=== PATIENT | female | born 1980 | race Asian ===

== ENCOUNTER 2019-07-31 17:07 | Emergency (ER) | payer OTHER, SELFPAY ==
[2019-07-31 17:12] VITALS: BP 140/97; PULSE 94; RESP 16; TEMP 36.6; O2SAT 97; BMI 29.7
--- NOTE | 2019-07-31 18:13 | ED_ITS ---
HPI - Abdominal Pain General Chief Complaint: Abdominal Pain Stated Complaint: FEMALE PARTS ARE AT WAR WITHIN HER Time Seen by Provider: 07/31/19 17:57 Source: patient Mode of arrival: ambulatory Limitations: no limitations History of Present Illness HPI narrative: Patient is a 38 year old female who presents with lower abdominal pain on going for 1 week, worse today. She has cramping and nausea, she was vomiting last week some but that has stopped. Normal bowel movements. She denies and vaginal pain or discharge, she is having some spotting. She has some burning sensation with urintation. He actually has been having pain off and on since June 21. She was seen by consumer services advisor who took out her brain as she had a pelvic ultrasound 2 weeks ago which she said was normal. She has a remote history of endometriosis. She has not had any fever chills or sweats. Related Data Home Medications Medication Instructions Recorded Confirmed thyroid (pork) [Nature-Throid] 48.75 mg PO QAM #0 05/27/17 levonorgestrel [Mirena] 52 mg INTRAU #0 01/11/18 DIM PO 07/30/19 dihydroergotamine NASAL PRN 07/30/19 07/30/19 ibuprofen 800 mg tablet 800 mg PO Q6H PRN 07/30/19 07/30/19 sumatriptan succinate 50 mg tablet 50 mg PO Q2-4H PRN 07/30/19 07/30/19 Previous Rx's Medication Instructions Recorded hydrocodone-acetaminophen 1 - 2 tab PO Q4HP PRN #40 tab 12/26/17 ondansetron 4 mg disintegrating 4 mg PO TID PRN 4 Days #20 tab 07/30/19 tablet rizatriptan 10 mg disintegrating See Rx Instructions PO .COMPLEX 07/30/19 tablet #10 tab verapamil 120 mg tablet,extended 120 mg PO DAILY #30 tab 07/30/19 release verapamil 40 mg tablet 40 mg PO TID #30 tab 07/30/19 hydrocodone-acetaminophen [[place]] 1 tab PO Q4-6H PRN #10 tab 07/31/19 Allergies Allergy/AdvReac Type Severity Reaction Status Date / Time Pertussis Vaccines Allergy Unknown Verified 07/30/19 14:47 [PERTUSSIS VACCINES] phenytoin [From DILANTIN] Allergy Unknown Verified 07/30/19 14:47 acetaminophen [From Percocet] Allergy rash, Verified 07/30/19 14:47 itching divalproex sodium Allergy fever, rash Verified 07/30/19 14:47 [From Depakote] omeprazole [From Prilosec] Allergy fever, rash Verified 07/30/19 14:47 oxycodone [From Percocet] Allergy rash, Verified 07/30/19 14:47 itching PAPER TAPE Allergy Unknown Uncoded 07/30/19 14:47 Review of Systems Review of Systems ROS Unobtainable: All systems reviewed & are unremarkable except as noted in HPI and below Constitutional Constitutional: Denies chills, Denies fever(s), Denies lethargy and Denies weakness ENT Ears, Nose, Mouth, and Throat: Denies change in voice, Denies neck pain and Denies sore throat Cardiovascular Cardiovascular: Denies chest pain, Denies irregular heart rhythm, Denies lightheadedness, Denies palpitations, Denies dyspnea, Denies dyspnea on exertion and Denies orthopnea Respiratory Respiratory: Denies cough, Denies dyspnea, Denies dyspnea on exertion and Denies wheezing Gastrointestinal Gastrointestinal: Reports as per HPI, Reports abdominal pain, Denies change in bowel habits, Denies diarrhea, Reports nausea and Denies vomiting Genitourinary Genitourinary: Denies hematuria, Denies flank pain, Denies urinary incontinence and Denies urinary urgency Musculoskeletal Musculoskeletal: Denies neck pain Neurologic Neurologic: Denies weakness Endocrine Endocrine: Denies palpitations Allergic/Immunologic Allergic/Immunologic: Denies wheezing [facility] Medical History History of stroke without residual deficits (05/27/17) Menorrhagia with regular cycle (Acute) Pelvic peritoneal endometriosis (Acute) Surgical History Status post laparoscopy (12/30/17) Social History Smoking Status: Never smoker Social History Smoking Status: Never smoker Exam Initial Vital Signs Initial Vital Signs: Vital Signs Temperature 97.8 F 07/31/19 17:12 Pulse Rate 94 H 07/31/19 17:12 Respiratory Rate 16 07/31/19 17:12 Blood Pressure 140/97 H 07/31/19 17:12 Pulse Oximetry 97 07/31/19 17:12 GENERAL: Patient appears in pain HEENT: Head atraumatic,EOMI, pupils reactive, face symmetric CARDIOVASCULAR: Regular rate and rhythm without murmurs, rubs or gallops. RESPIRATORY: Breath sounds equal bilaterally, no wheezes rales or rhonchi. ABDOMEN: Soft, nontender. Normoactive bowel sounds all 4 quadrants. No guarding or rebound. : No CVA tenderness EXTREMITIES: Normal range of motion, no clubbing or edema. Neurovascularly intact NEUROLOGICAL: Alert and oriented x4.Normal gait and speech. SKIN: Warm, dry, no laceration, no petechiae, no rashes or lesions. Course Orders Ordered: ED Orders 07/31/19 18:10 Test Urine Stat Urine Microscopic Stat 07/31/19 18:20 Complete Blood Count AUTO DIFF Stat Comprehensive Metabolic Panel Stat Lipase Stat Partial Thromboplastin Time Stat Prothrombin Time INR Stat 07/31/19 18:22 CT abdomen pelvis w con Stat Discontinued Medications Hydromorphone HCl (Dilaudid) 0.5 mg IV NOW ONE Stop: 07/31/19 18:23 Last Admin: 07/31/19 18:31 Dose: 0.5 mg Documented by: CSA Sodium Chloride (Normal Saline 0.9%) 1,000 mls @ 1,000 mls/hr IV BOLUS ONE Stop: 07/31/19 19:21 Last Infusion: 07/31/19 19:34 Dose: 0 mls/hr Documented by: Admin: 07/31/19 18:31 Dose: 1,000 mls/hr Documented by: CAS Ketorolac Tromethamine (Toradol) 30 mg IV NOW ONE Stop: 07/31/19 19:53 Last Admin: 07/31/19 19:56 Dose: 30 mg Documented by: CAS Ondansetron HCl (Zofran) 4 mg IV NOW ONE Stop: 07/31/19 18:23 Last Admin: 07/31/19 18:31 Dose: 4 mg Documented by: CAS Vital Signs Vital signs: Vital Signs - 8 hr 07/31/19 17:12 07/31/19 20:19 Temperature 97.8 F Pulse Rate 94 H 59 L Respiratory Rate 16 14 Blood Pressure 140/97 H 114/70 Pulse Oximetry 97 99 MDM - Abdominal Pain Lab Data Attestation: I reviewed the patient's lab results. Result diagrams: 07/31/19 18:20 07/31/19 18:20 Labs: Lab Results 07/31/19 07/31/19 07/31/19 Range/Units 18:10 18:10 18:20 WBC 8.8 (4.5-11.0) X10^3/uL RBC 4.56 (4.0-5.2) X10^6/uL Hgb 13.9 (12.0-16.0) g/dL Hct 41.4 (36-46) % MCV 90.9 (80-100) fL MCH 30.5 (26-34) PG MCHC 33.5 (30-36) % RDW 12.8 (11.6-14.8) % Plt Count 250 (150-400) X10^3/uL Neut % (Auto) 69.9 (50-75) % Lymph % (Auto) 21.6 L (25-40) % [place] % (Auto) 6.8 (3-14) % Eos % (Auto) 1.0 L (2-4) % Baso % (Auto) 0.7 (0-2) % Neut # (Auto) 6200 (0772-5796) /uL Lymph # (Auto) 1900 (9074-3763) /uL [place] # (Auto) 600 (0-900) /uL Eos # (Auto) 100 (0-450) /uL Baso # (Auto) 100 (0-100) /uL PT (10.1-12.7) SECONDS INR (0.9-1.3) APTT (26.4-36.2) SECONDS Sodium (137-145) mmol/L Potassium (3.4-5.1) mmol/L Chloride (98-107) mmol/L Carbon Dioxide (22-32) mmol/L BUN (7-17) mg/dL Creatinine (0.52-1.04) mg/dL Estimated GFR (>60) mL/min BUN/Creatinine Ratio (6-22) Glucose (70-100) mg/dL Calcium (8.4-10.2) mg/dL Total Bilirubin (0.2-1.3) mg/dL AST (14-36) IU/L ALT (9-52) IU/L Alkaline Phosphatase (38-126) U/L Total Protein (6.3-8.2) g/dL Albumin (3.5-5.0) g/dL Globulin (1.7-4.1) g/dL Albumin/Globulin Ratio (1.0-2.8) Lipase (23-300) U/L Urine RBC None seen (0-5/HPF) Urine WBC None seen (0-5/HPF) Urine Bacteria None seen (None) Ur Culture Indicated? Cult not indicated Micro UA Comment Microscopic normal Urine Test Negative (Negative) 07/31/19 07/31/19 Range/Units 18:20 18:20 WBC (4.5-11.0) X10^3/uL RBC (4.0-5.2) X10^6/uL Hgb (12.0-16.0) g/dL Hct (36-46) % MCV (80-100) fL MCH (26-34) PG MCHC (30-36) % RDW (11.6-14.8) % Plt Count (150-400) X10^3/uL Neut % (Auto) (50-75) % Lymph % (Auto) (25-40) % [place] % (Auto) (3-14) % Eos % (Auto) (2-4) % Baso % (Auto) (0-2) % Neut # (Auto) (3030-5048) /uL Lymph # (Auto) (7114-1141) /uL [place] # (Auto) (0-900) /uL Eos # (Auto) (0-450) /uL Baso # (Auto) (0-100) /uL PT 11.3 (10.1-12.7) SECONDS INR 1.0 (0.9-1.3) APTT 32 (26.4-36.2) SECONDS Sodium 139 (137-145) mmol/L Potassium 3.8 (3.4-5.1) mmol/L Chloride 103 (98-107) mmol/L Carbon Dioxide 26 (22-32) mmol/L BUN 7 (7-17) mg/dL Creatinine 0.80 (0.52-1.04) mg/dL Estimated GFR > 60.0 (>60) mL/min BUN/Creatinine Ratio 8.8 (6-22) Glucose 94 (70-100) mg/dL Calcium 9.7 (8.4-10.2) mg/dL Total Bilirubin 0.6 (0.2-1.3) mg/dL AST 22 (14-36) IU/L ALT 13 (9-52) IU/L Alkaline Phosphatase 43 (38-126) U/L Total Protein 7.6 (6.3-8.2) g/dL Albumin 4.4 (3.5-5.0) g/dL Globulin 3.2 (1.7-4.1) g/dL Albumin/Globulin Ratio 1.4 (1.0-2.8) Lipase 116 (23-300) U/L Urine RBC (0-5/HPF) Urine WBC (0-5/HPF) Urine Bacteria (None) Ur Culture Indicated? Micro UA Comment Urine Test (Negative) Point of care testing: Urine Dip Bedside Urine Glucose Negative Bedside Urine Bilirubin - Negative Bedside Urine Ketone - Negative Urine Specific [place] 1.000 Bedside Urine Occult Blood + Bedside Urine pH 7.0 Bedside Urine Protein - Negative Bedside Urine Urobilinogen - Negative Bedside Urine Nitrite - Negative Bedside Urine Leukocytes - Negative Esterase Imaging Data CT scan - abdomen: Radiologist's impression: PROCEDURE: CT ABDOMEN PELVIS W CON INDICATIONS: lower ab pain TECHNIQUE: After the administration of intravenous contrast, 5 mm thick sections acquired from the diaphragm to the symphysis. 5 mm coronal and sagittal reformats were acquired. For radiation dose reduction, the following was used: automated exposure control, adjustment of mA and/or kV according to patient size. COMPARISON: [facility], CT, ABDOMEN/PELVIS WITH CONTRAST, 08/19/2016, 8:11. FINDINGS: Image quality: Excellent. ABDOMEN: Lung bases: Lung bases are clear. Heart size is normal. Solid organs: Liver is normal in size and enhancement. Gallbladder is within normal limits. Biliary system is non dilated. Pancreas enhances normally. Spleen is normal in size and enhancement. No adrenal nodules. Kidneys demonstrate normal size and enhancement, without hydronephrosis. Peritoneum and bowel: Bowel loops demonstrate normal wall thickness and caliber. No pneumoperitoneum. Trace free fluid within the pelvis. Normal appendix. Nodes and vessels: No retroperitoneal or mesenteric adenopathy by size criteria. Aorta and inferior vena cava are normal in size. Miscellaneous: No ventral hernias. PELVIS: Genitourinary: Bladder wall thickness is normal. Miscellaneous: No inguinal hernias or adenopathy. Bones: No suspicious bony lesions. No vertebral body compression fractures. IMPRESSION: 1. No acute process. 2. Normal appendix. 3. Trace free fluid within the pelvis, within physiological limits in a menstruating female. Dictated by: Sophia Perez M.D. on 07/31/2019 at 19:24 MDM Narrative Medical decision making narrative: Patient absolutely denies any abnormal vaginal discharge or vaginal pain. She is offered a pelvic ultrasound however she says she generally does had 1 1 or 2 weeks ago and it did not show anything. She is refusing repeat. She does have signs or symptoms to suggest pelvic infection. She has a consumer services advisor. Blood work and CT overall reassuring. Pain is better after Dilaudid however starting to back. No sign of UTI or infection Discharge Plan Departure Patient Disposition: Home Clinical Impression: Endometriosis Discharge Date/Time: 07/31/19 20:19 Instructions: DI for Endometriosis Activity Restrictions/Additional Instructions: *You have been diagnosed with endometriosis *What to do: CT blood work today are reassuring. Pain is likely from her endometriosis. You may require further testing or treatment please see a consumer services advisor about this. *Continue to take medications as directed Hydrocodone 1 tablet every 4 hours if needed for pain or 2 tablets every 6 hours *Follow up with your primary care provider in 2-3 days *Return to ER if you should have significant increase in pain, vaginal bleeding more than 3 super pads or tampons an hour, fevers inability tolerate fluids or any new, worsening or concerning symptoms CONTROLLED SUBSTANCE DISCHARGE (Narcotoic/benzodiazepine/Flexeril/Phenergan) 1. You have been prescribed narcotic medications, it does have acetaminophen/Tylenol/paracetamol in it so do not take extra Tylenol or Tylenol containing products 2. Please understand that we cannot provide further refills of narcotics, benzodiazepines or controlled substances through the ED and her pain management will need to be through your provider. 3. While on these medications you cannot drive or operate heavy machinery. 4. You cannot sign legal documents or perform any duties such as this. 5. As long as you're taking opiate pain medications he should also be taking a stool softener such as Colace, Dulcolax, MiraLAX or prune juice, to help avoid constipation. Prescriptions: New hydrocodone-acetaminophen [[place]] 5-325 mg tablet 1 tab PO Q4-6H PRN (Reason: pain) Qty: 10 RF: 0 No Action thyroid (pork) [Nature-Throid] 48.75 MG tablet 48.75 mg PO QAM Qty: 0 RF: 0 hydrocodone-acetaminophen 5 MG/325 MG tablet 1 - 2 tab PO Q4HP PRNQty: 40 RF: 0 levonorgestrel [Mirena] 1 EACH intrauterine device 52 mg INTRAU Qty: 0 RF: 0 sumatriptan succinate 50 mg tablet 50 mg PO Q2-4H PRNRF: 0 ibuprofen 800 mg tablet 800 mg PO Q6H PRNRF: 0 dihydroergotamine NASAL PRNRF: 0 DIM PO RF: 0 ondansetron 4 mg tablet,disintegrating 4 mg PO TID PRN (Reason: nausea and vomiting) 4 Days Qty: 20 RF: 2 rizatriptan 10 mg tablet,disintegrating See Rx Instructions PO .COMPLEX Qty: 10 RF: 3 verapamil 40 mg tablet 40 mg PO TID Qty: 30 RF: 0 verapamil 120 mg tablet extended release 120 mg PO DAILY Qty: 30 RF: 5 Referrals: Kate Chou MD [Primary Care Provider] - Mahnaz Vasquez MD [Physician] - Umesh Bright MD [Physician] -
[2019-07-31 18:21] LABS: Bacteria Urine None Seen; RBC Urine None Seen (0-5/HPF); WBC Urine None Seen (0-5/HPF)
--- NOTE | 2019-07-31 18:22 | DI.CT.S_ITS ---
PROCEDURE: CT ABDOMEN PELVIS W CON INDICATIONS: lower ab pain TECHNIQUE: After the administration of intravenous contrast, 5 mm thick sections acquired from the diaphragm to the symphysis. 5 mm coronal and sagittal reformats were acquired. For radiation dose reduction, the following was used: automated exposure control, adjustment of mA and/or kV according to patient size. COMPARISON: [facility], CT, ABDOMEN/PELVIS WITH CONTRAST, 08/19/2016, 8:11. FINDINGS: Image quality: Excellent. ABDOMEN: Lung bases: Lung bases are clear. Heart size is normal. Solid organs: Liver is normal in size and enhancement. Gallbladder is within normal limits. Biliary system is non dilated. Pancreas enhances normally. Spleen is normal in size and enhancement. No adrenal nodules. Kidneys demonstrate normal size and enhancement, without hydronephrosis. Peritoneum and bowel: Bowel loops demonstrate normal wall thickness and caliber. No pneumoperitoneum. Trace free fluid within the pelvis. Normal appendix. Nodes and vessels: No retroperitoneal or mesenteric adenopathy by size criteria. Aorta and inferior vena cava are normal in size. Miscellaneous: No ventral hernias. PELVIS: Genitourinary: Bladder wall thickness is normal. Miscellaneous: No inguinal hernias or adenopathy. Bones: No suspicious bony lesions. No vertebral body compression fractures. IMPRESSION: 1. No acute process. 2. Normal appendix. 3. Trace free fluid within the pelvis, within physiological limits in a menstruating female. Dictated by: Sophia Perez M.D. on 07/31/2019 at 19:24 Approved by: Sophia Perez M.D. on 07/31/2019 at 19:26
[2019-07-31 18:26] LABS: Add Manual Diff / Slide Review NO; Basophils Absolute Auto 100 /uL (0-100); Basophils Percent Auto 0.7 % (0-2); Eosinophils Absolute Auto 100 /uL (0-450); Hematocrit 41.4 % (36-46); Hemoglobin 13.9 g/dL (12.0-16.0); Lymphocytes Absolute Auto 1900 /uL (1100-4500); Lymphocytes Percent Auto 21.6 % (25-40); Mean Corpuscular HGB Conc 33.5 % (30-36); Mean Corpuscular Hemoglobin 30.5 PG (26-34); Mean Corpuscular Volume 90.9 fL (80-100); Monocytes Absolute Auto 600 /uL (0-900); Monocytes Percent Auto 6.8 % (3-14); Neutrophils Absolute Auto 6200 /uL (1500-7000); Neutrophils Percent Auto 69.9 % (50-75); Platelet Count 250 X10^3/uL (150-400); Red Blood Cell Count 4.56 X10^6/uL (4.0-5.2); Red Cell Distribution Width 12.8 % (11.6-14.8); White Blood Cell Count 8.8 X10^3/uL (4.5-11.0)
[2019-07-31] MEDS: ONDANSETRON 4 MG/2 ML INJ IV (18:31)
[2019-07-31] MEDS: HYDROMORPHONE 0.5 MG INJ IV (18:31)
[2019-07-31] MEDS: SODIUM CHLORIDE 0.9% 1,000 ML 1000 ML IV (18:31)
[2019-07-31 18:32] LABS: Prothrombin Time 11.3 SECONDS (10.1-12.7)
[2019-07-31 18:34] LABS: PTT Partial Thromboplastin Tim 32 SECONDS (26.4-36.2)
[2019-07-31 18:41] LABS: Alanine Aminotransferase 13 IU/L (9-52); Albumin 4.4 g/dL (3.5-5.0); Albumin Globulin Ratio 1.4 (1.0-2.8); Alkaline Phosphatase 43 U/L (38-126); Aspartate Aminotransferase 22 IU/L (14-36); BUN Creatinine Ratio 8.8 (6-22); Bilirubin Total 0.6 mg/dL (0.2-1.3); Blood Urea Nitrogen 7 mg/dL (7-17); Calcium 9.7 mg/dL (8.4-10.2); Carbon Dioxide 26 mmol/L (22-32); Chloride 103 mmol/L (98-107); Estimated Glomerular Filt Rate > 60.0 mL/min (>60); Globulin 3.2 g/dL (1.7-4.1); Glucose 94 mg/dL (70-100); HEMOLYSIS < 15 (0-50); Lipase 116 U/L (23-300); Potassium 3.8 mmol/L (3.4-5.1); Sodium 139 mmol/L (137-145); Total Protein 7.6 g/dL (6.3-8.2)
[2019-07-31 18:45] LABS: Culture Indicated Urine Cult Not Indicated; Urine Comments Microscopic Normal
[2019-07-31 18:52] LABS: Pregnancy Test Urine Negative (Negative)
[2019-07-31] MEDS: KETOROLAC 60 MG/2 ML VIAL 30 MG IV (19:56)
[2019-07-31 20:19] VITALS: BP 114/70; PULSE 59; RESP 14; O2SAT 99
== END 2019-07-31 20:19 | disposition home or self-care (01) ==
PROVIDERS: Emergency Medicine; Emergency Provider Emergency Medicine; Family Provider Specialist; PCP Specialist
DX: N80.9 Endometriosis, unspecified (principal)
CPT/HCPCS: 36591; 74177; 80053; 81003; 81015; 81025; 83690; 85025; 85610; 85730; 96361; 96374; 96375; 99283; 99285; J1170; J1885; J2405; Q9967

== ENCOUNTER 2020-01-07 12:58 | Emergency (ER) | payer OTHER, SELFPAY ==
[2020-01-07 13:02] VITALS: BP 126/71; PULSE 57; RESP 18; TEMP 36.6; O2SAT 99
--- NOTE | 2020-01-07 14:56 | ED.FEMALEGU ---
HPI - Female Genitourinary General Chief complaint: Urogenital-Female Stated complaint: Poss Kidney Stone, sent from [facility] Time Seen by Provider: 01/07/20 14:46 Source: patient Mode of arrival: Wheelchair Limitations: no limitations History of Present Illness HPI Narrative: 39-year-old female comes in with left flank pain. Patient states it started the last 24-48 hours. Started as a dull ache in increased intensity into today. It has been constant. She states taking a deep breath makes it worse. No fevers. She has been nauseated but not vomiting. She was constipated she took some milk of magnesium and had a normal bowel movement this morning. No black or bloody stools. No vaginal bleeding or discharge. Patient states she had frequency yesterday but less so today. No hematuria noted, no odor, no urgency or dysuria. She states she has a history of endometriosis had a hysterectomy and was told that there was a lot of endometrial changes around the ureters and that the surgeon ?did something to her ureters? but she does not know what. She states that also removed her appendix at that time. She did not follow-up with a dimension specification inspector although she was instructed to do so. . She states multiple allergies to medications. She was seen in the walk-in clinic given Zofran and Toradol IM which she said was helpful but is wearing off. Related Data Home Medications Medication Instructions Recorded Confirmed thyroid (pork) [Nature-Throid] 48.75 mg PO QAM #0 05/27/17 01/07/20 DIM PO 07/30/19 01/07/20 dihydroergotamine NASAL PRN 07/30/19 01/07/20 ibuprofen 800 mg tablet 800 mg PO Q6H PRN 07/30/19 01/07/20 sumatriptan succinate 50 mg tablet 50 mg PO Q2-4H PRN 07/30/19 01/07/20 Previous Rx's Medication Instructions Recorded ondansetron 4 mg disintegrating 4 mg PO TID PRN 4 Days #20 tab 07/30/19 tablet rizatriptan 10 mg disintegrating See Rx Instructions PO .COMPLEX 07/30/19 tablet #10 tab verapamil 120 mg tablet,extended 120 mg PO DAILY #30 tab 07/30/19 release verapamil 40 mg tablet 40 mg PO TID #30 tab 09/16/19 naproxen sodium 550 mg tablet 550 mg PO TID #60 tab 08/06/19 ketorolac 10 mg PO TID PRN 5 Days #10 tab 01/07/20 lidocaine 1 patch TOP DAILY PRN #1 each 01/07/20 Allergies Allergy/AdvReac Type Severity Reaction Status Date / Time Pertussis Vaccines Allergy Unknown Verified 01/07/20 12:32 [PERTUSSIS VACCINES] phenytoin [From DILANTIN] Allergy Unknown Verified 01/07/20 12:32 acetaminophen [From Percocet] Allergy rash, Verified 01/07/20 12:32 itching divalproex sodium Allergy fever, rash Verified 01/07/20 12:32 [From Depakote] omeprazole [From Prilosec] Allergy fever, rash Verified 01/07/20 12:32 oxycodone [From Percocet] Allergy rash, Verified 01/07/20 12:32 itching PAPER TAPE Allergy Unknown Uncoded 07/30/19 14:47 Review of Systems Review of Systems ROS Unobtainable: All systems reviewed & are unremarkable except as noted in HPI and below Patient History Medical History History of stroke without residual deficits (05/27/17) Menorrhagia with regular cycle (Acute) Pelvic peritoneal endometriosis (Acute) Surgical History Status post laparoscopy (12/30/17) alcohol intake frequency: holidays/special occasions only Substance Use Type: does not use Exam Narrative Exam Narrative: GENERAL: Alert and oriented x three, well-nourished female in [id number] distress. HEENT: Head normocephalic, atraumatic, EOMI, pupils reactive, face symmetric, moist mucous membranes NECK: Supple, full range of motion CARDIOVASCULAR: Regular rate and rhythm without murmurs, rubs or gallops. RESPIRATORY: Breath sounds equal bilaterally, no wheezes rales or rhonchi. ABDOMEN: Soft, nontender. Normoactive bowel sounds all 4 quadrants. No guarding or rebound, rigidity, no mass : Mild left CVA tenderness, no right CVA tenderness. EXTREMITIES: Normal range of motion, no clubbing or edema. Neurovascularly intact NEUROLOGICAL: Cranial nerves II through XII grossly intact. Moving all extremities SKIN: Warm, dry, no petechiae, no rashes or lesions. Initial Vital Signs Initial Vital Signs: Vital Signs Temperature 97.8 F 01/07/20 13:02 Pulse Rate 57 L 01/07/20 13:02 Respiratory Rate 18 01/07/20 13:02 Blood Pressure 126/71 01/07/20 13:02 Pulse Oximetry 99 01/07/20 13:02 Course Orders Ordered: ED Orders 01/07/20 15:07 CT abdomen pelvis wo con Stat 01/07/20 15:11 Complete Blood Count AUTO DIFF Stat Comprehensive Metabolic Panel Stat Lipase Stat Discontinued Medications Sodium Chloride (Normal Saline 0.9%) 1,000 mls @ 1,000 mls/hr IV BOLUS ONE Stop: 01/07/20 16:06 Last Infusion: 01/07/20 16:17 Dose: 1,000 mls/hr Documented by: Admin: 01/07/20 15:53 Dose: 1,000 mls/hr Documented by: CPRUITT Morphine Sulfate (Morphine) 4 mg IV NOW ONE Stop: 01/07/20 15:08 Last Admin: 01/07/20 15:34 Dose: 4 mg Documented by: CPRUITT Vital Signs Vital signs: Vital Signs - 8 hr 01/07/20 13:02 01/07/20 15:40 01/07/20 16:18 Temperature 97.8 F Pulse Rate 57 L 59 L 62 Respiratory Rate 18 18 14 Blood Pressure 126/71 Blood Pressure [Right Arm] 128/71 124/70 Pulse Oximetry 99 100 99 MDM - Female Genitourinary Lab Data Attestation: I reviewed the patient's lab results. Result diagrams: 01/07/20 15:11 01/07/20 15:11 Labs: Lab Results 01/07/20 01/07/20 Range/Units 15:11 15:11 WBC 11.2 H (4.5-11.0) X10^3/uL RBC 4.61 (4.0-5.2) X10^6/uL Hgb 14.1 (12.0-16.0) g/dL Hct 42.0 (36-46) % MCV 91.0 (80-100) fL MCH 30.5 (26-34) PG MCHC 33.5 (30-36) % RDW 12.7 (11.6-14.8) % Plt Count 282 (150-400) X10^3/uL Neut % (Auto) 75.0 (50-75) % Lymph % (Auto) 17.3 L (25-40) % [place] % (Auto) 6.4 (3-14) % Eos % (Auto) 0.6 L (2-4) % Baso % (Auto) 0.7 (0-2) % Neut # (Auto) 8400 H (6798-6900) /uL Lymph # (Auto) 1900 (7446-0045) /uL [place] # (Auto) 700 (0-900) /uL Eos # (Auto) 100 (0-450) /uL Baso # (Auto) 100 (0-100) /uL Sodium 137 (137-145) mmol/L Potassium 4.0 (3.4-5.1) mmol/L Chloride 102 (98-107) mmol/L Carbon Dioxide 26 (22-32) mmol/L BUN 9 (7-17) mg/dL Creatinine 0.70 (0.52-1.04) mg/dL Estimated GFR > 60.0 (>60) mL/min BUN/Creatinine Ratio 12.9 (6-22) Glucose 89 (70-100) mg/dL Calcium 9.6 (8.4-10.2) mg/dL Total Bilirubin 0.8 (0.2-1.3) mg/dL AST 26 (14-36) IU/L ALT 15 (<35) IU/L Alkaline Phosphatase 51 (38-126) U/L Total Protein 7.9 (6.3-8.2) g/dL Albumin 4.6 (3.5-5.0) g/dL Globulin 3.3 (1.7-4.1) g/dL Albumin/Globulin Ratio 1.4 (1.0-2.8) Lipase 70 (23-300) U/L Point of Care Testing Test Results Negative Urine Dip Bedside Urine Glucose Negative Bedside Urine Bilirubin - Negative Bedside Urine Ketone - Negative Urine Specific Roe 1.010 Bedside Urine Occult Blood - Negative Bedside Urine pH 6.5 Bedside Urine Protein - Negative Bedside Urine Urobilinogen - Negative Bedside Urine Nitrite - Negative Bedside Urine Leukocytes - Negative Esterase Imaging Data CT scan - abdomen/pelvis: Radiologist's Impression: [address] [address] [address] Scan Report Signed Patient: Dayanna Suarez EMR#: [id number] : 1980Acct:[id number] Age/Sex: 39 / FDate of Service: 01/07/20 Loc: ED Accession Number: [id number] Procedure: CT abdomen pelvis wo con Ordering Provider: Nina Benedict D.O. PROCEDURE: CT ABDOMEN PELVIS WO CON INDICATIONS: left flank pain, hx of endometriosis. TECHNIQUE: Noncontrast 5 mm thick sections acquired from the diaphragms to the symphysis. 5 mm coronal and sagittal reformats were then performed. For radiation dose reduction, the following was used: automated exposure control, adjustment of mA and/or kV according to patient size. COMPARISON: [facility], CT, CT ABDOMEN PELVIS W CON, 07/31/2019, 19:11. FINDINGS: Image quality: Excellent. ABDOMEN: Lung bases: Lung bases are clear. Heart size is normal. Solid organs: Liver is mildly prominent. Gallbladder is unremarkable. Pancreas is normal in contours. Spleen is normal in size. No adrenal nodules. Kidneys are normal in size, without hydronephrosis or nephrolithiasis. Peritoneum and bowel: Unenhanced bowel loops demonstrate normal wall thickness and caliber. No free air. Minimal dependent pelvic fluid is present. Nodes and vessels: No retroperitoneal or mesenteric adenopathy by size criteria. Aorta and inferior vena cava are normal in caliber. Miscellaneous: No ventral hernias. PELVIS: Genitourinary: Bladder wall thickness is normal. Miscellaneous: No inguinal hernias or adenopathy. Bones: No suspicious bony lesions. No vertebral body compression fractures. IMPRESSION: 1. No visualized nephro or ureterolithiasis. No bladder calculi. 2. Minimal dependent pelvic fluid. Dictated by: Seema Marsh M.D. on 01/07/2020 at 15:34 Approved by: Seema Marsh M.D. on 01/07/2020 at 15:37 MDM Narrative Medical decision making narrative: Patient comes in with complaint of left flank pain, urine is negative, she is white count 11.2 but otherwise normal labs. Renal functions normal. KUB does not show any acute findings. We discussed that there is potential for to have recurrent endometriosis although less likely with her acute onset of pain this would not show an imaging. She responded well to the Toradol and asked if she can have something similar so given Toradol p.o. but discussed cannot take it for prolonged periods in cannot take it with other NSAIDs. Discussed she should follow-up with her OBGYN there were no changes showing any renal dysfunction today as she had been told she needs to see a dimension specification inspector although it is unclear why she was told this. We did ask if she had perhaps been referred to a urologist as she has been told she has interstitial cystitis although her labs and exam today seem less likely that this is the cause of her pain. Discharge Plan Departure Patient Disposition: Home Clinical Impression: Flank pain Discharge Date/Time: 01/07/20 16:21 Instructions: DI for Flank Pain Activity Restrictions/Additional Instructions: Follow-up with your physician in the next week for recheck. Your labs, urine imaging did not show any acute changes today. Take medication as prescribed for pain. Do not take this medication with other NSAIDs. Prescriptions sent to [facility] in [place]. Return to the emergency department for new or worsening symptoms, fevers, persistent vomiting, black or bloody stools, passing out, new chest pain or shortness of breath, inability urinate or other new or concerning symptoms. Prescriptions: New ketorolac 10 mg tablet 10 mg PO TID PRN (Reason: pain) 5 Days Qty: 10 RF: 0 lidocaine 5 % adhesive patch,medicated 1 patch TOP DAILY PRN (Reason: pain) Qty: 1 RF: 0 No Action thyroid (pork) [Nature-Throid] 48.75 MG tablet 48.75 mg PO QAM Qty: 0 RF: 0 naproxen sodium 550 mg tablet 550 mg PO TID Qty: 60 RF: 0 sumatriptan succinate 50 mg tablet 50 mg PO Q2-4H PRNRF: 0 ibuprofen 800 mg tablet 800 mg PO Q6H PRNRF: 0 dihydroergotamine NASAL PRNRF: 0 DIM PO RF: 0 ondansetron 4 mg tablet,disintegrating 4 mg PO TID PRN (Reason: nausea and vomiting) 4 Days Qty: 20 RF: 2 rizatriptan 10 mg tablet,disintegrating See Rx Instructions PO .COMPLEX Qty: 10 RF: 3 verapamil 40 mg tablet 40 mg PO TID Qty: 30 RF: 0 verapamil 120 mg tablet extended release 120 mg PO DAILY Qty: 30 RF: 5 Referrals: Kate Chou MD [Primary Care Provider] -
--- NOTE | 2020-01-07 15:07 | DI.CT.S_ITS ---
PROCEDURE: CT ABDOMEN PELVIS WO CON INDICATIONS: left flank pain, hx of endometriosis. TECHNIQUE: Noncontrast 5 mm thick sections acquired from the diaphragms to the symphysis. 5 mm coronal and sagittal reformats were then performed. For radiation dose reduction, the following was used: automated exposure control, adjustment of mA and/or kV according to patient size. COMPARISON: [facility], CT, CT ABDOMEN PELVIS W CON, 07/31/2019, 19:11. FINDINGS: Image quality: Excellent. ABDOMEN: Lung bases: Lung bases are clear. Heart size is normal. Solid organs: Liver is mildly prominent. Gallbladder is unremarkable. Pancreas is normal in contours. Spleen is normal in size. No adrenal nodules. Kidneys are normal in size, without hydronephrosis or nephrolithiasis. Peritoneum and bowel: Unenhanced bowel loops demonstrate normal wall thickness and caliber. No free air. Minimal dependent pelvic fluid is present. Nodes and vessels: No retroperitoneal or mesenteric adenopathy by size criteria. Aorta and inferior vena cava are normal in caliber. Miscellaneous: No ventral hernias. PELVIS: Genitourinary: Bladder wall thickness is normal. Miscellaneous: No inguinal hernias or adenopathy. Bones: No suspicious bony lesions. No vertebral body compression fractures. IMPRESSION: 1. No visualized nephro or ureterolithiasis. No bladder calculi. 2. Minimal dependent pelvic fluid. Dictated by: Seema Marsh M.D. on 01/07/2020 at 15:34 Approved by: Seema Marsh M.D. on 01/07/2020 at 15:37
[2020-01-07 15:22] LABS: Add Manual Diff / Slide Review NO; Basophils Absolute Auto 100 /uL (0-100); Basophils Percent Auto 0.7 % (0-2); Eosinophils Absolute Auto 100 /uL (0-450); Eosinophils Percent Auto 0.6 % (2-4); Hemoglobin 14.1 g/dL (12.0-16.0); Lymphocytes Absolute Auto 1900 /uL (1100-4500); Lymphocytes Percent Auto 17.3 % (25-40); Mean Corpuscular HGB Conc 33.5 % (30-36); Mean Corpuscular Hemoglobin 30.5 PG (26-34); Monocytes Absolute Auto 700 /uL (0-900); Monocytes Percent Auto 6.4 % (3-14); Neutrophils Absolute Auto 8400 /uL (1500-7000); Platelet Count 282 X10^3/uL (150-400); Red Blood Cell Count 4.61 X10^6/uL (4.0-5.2); Red Cell Distribution Width 12.7 % (11.6-14.8); White Blood Cell Count 11.2 X10^3/uL (4.5-11.0)
[2020-01-07] MEDS: MORPHINE 4 MG/ML INJ IV (15:34)
[2020-01-07 15:36] LABS: Alanine Aminotransferase 15 IU/L (<35); Albumin 4.6 g/dL (3.5-5.0); Albumin Globulin Ratio 1.4 (1.0-2.8); Alkaline Phosphatase 51 U/L (38-126); Aspartate Aminotransferase 26 IU/L (14-36); BUN Creatinine Ratio 12.9 (6-22); Bilirubin Total 0.8 mg/dL (0.2-1.3); Blood Urea Nitrogen 9 mg/dL (7-17); Calcium 9.6 mg/dL (8.4-10.2); Carbon Dioxide 26 mmol/L (22-32); Chloride 102 mmol/L (98-107); Estimated Glomerular Filt Rate > 60.0 mL/min (>60); Globulin 3.3 g/dL (1.7-4.1); Glucose 89 mg/dL (70-100); HEMOLYSIS < 15 (0-50); Lipase 70 U/L (23-300); Sodium 137 mmol/L (137-145); Total Protein 7.9 g/dL (6.3-8.2)
[2020-01-07 15:40] VITALS: BP 128/71; PULSE 59; RESP 18; O2SAT 100
[2020-01-07] MEDS: SODIUM CHLORIDE 0.9% 1,000 ML 1000 ML IV (15:53)
[2020-01-07 16:18] VITALS: BP 124/70; PULSE 62; RESP 14; O2SAT 99
== END 2020-01-07 16:21 | disposition home or self-care (01) ==
PROVIDERS: Emergency Provider Emergency Medicine; Family Provider Specialist; PCP Specialist
DX: R10.9 Unspecified abdominal pain (principal)
CPT/HCPCS: 36415; 74176; 80053; 81003; 81025; 83690; 85025; 96374; 99284; J2270

== ENCOUNTER 2020-05-02 14:30 | Emergency (ER) | payer OTHER, SELFPAY ==
--- NOTE | 2020-05-02 14:34 | PC.NURSE ---
1433-no answer, pt not in waiting area
[2020-05-02 14:41] VITALS: BP 132/87; PULSE 97; RESP 18; O2SAT 100; BMI 31.6
--- NOTE | 2020-05-02 14:43 | DI.RAD.S_ITS ---
PROCEDURE: XR CHEST 1V INDICATIONS: chest pain. TECHNIQUE: One view of the chest was acquired. COMPARISON: [facility], , CHEST 1 VIEW, 12/18/2013, 10:15. FINDINGS: Surgical changes and devices: None. Lungs and pleura: Lungs are clear. No pleural effusions or pneumothorax. Mediastinum: Mediastinal contours appear normal. Heart size is normal. Bones and chest wall: No suspicious bony lesions. Overlying soft tissues appear unremarkable. IMPRESSION: Normal for age, source of current chest pain symptoms is not seen. Dictated by: Mt Gerber M.D. on 05/02/2020 at 15:10 Approved by: Mt Gerber M.D. on 05/02/2020 at 15:10
[2020-05-02 15:05] LABS: Add Manual Diff / Slide Review NO; Basophils Absolute Auto 100 /uL (0-100); Basophils Percent Auto 0.9 % (0-2); Eosinophils Absolute Auto 100 /uL (0-450); Eosinophils Percent Auto 1.1 % (2-4); Hematocrit 38.4 % (36-46); Hemoglobin 13.2 g/dL (12.0-16.0); Lymphocytes Absolute Auto 1300 /uL (1100-4500); Lymphocytes Percent Auto 21.6 % (25-40); Mean Corpuscular HGB Conc 34.4 % (30-36); Mean Corpuscular Volume 90.1 fL (80-100); Monocytes Absolute Auto 400 /uL (0-900); Monocytes Percent Auto 6.7 % (3-14); Neutrophils Absolute Auto 4200 /uL (1500-7000); Neutrophils Percent Auto 69.7 % (50-75); Platelet Count 258 X10^3/uL (150-400); Red Blood Cell Count 4.26 X10^6/uL (4.0-5.2); Red Cell Distribution Width 12.9 % (11.6-14.8); White Blood Cell Count 6.1 X10^3/uL (4.5-11.0)
[2020-05-02 15:11] LABS: Prothrombin Time 11.1 SECONDS (10.1-12.7)
[2020-05-02 15:14] LABS: PTT Partial Thromboplastin Tim 31 SECONDS (26.4-36.2)
[2020-05-02 15:18] LABS: Alanine Aminotransferase 14 IU/L (<35); Albumin 4.3 g/dL (3.5-5.0); Albumin Globulin Ratio 1.4 (1.0-2.8); Alkaline Phosphatase 41 U/L (38-126); Aspartate Aminotransferase 26 IU/L (14-36); BUN Creatinine Ratio 14.3 (6-22); Bilirubin Total 0.6 mg/dL (0.2-1.3); Blood Urea Nitrogen 11 mg/dL (7-17); Calcium 9.2 mg/dL (8.4-10.2); Carbon Dioxide 26 mmol/L (22-32); Chloride 106 mmol/L (98-107); Creatine Kinase 61 U/L (30-135); Estimated Glomerular Filt Rate > 60.0 mL/min (>60); Glucose 103 mg/dL (70-100); HEMOLYSIS < 15 (0-50); Lipase 120 U/L (23-300); Potassium 3.5 mmol/L (3.4-5.1); Sodium 138 mmol/L (137-145); Total Protein 7.3 g/dL (6.3-8.2)
[2020-05-02 15:20] LABS: Magnesium 1.9 mg/dL (1.6-2.3)
[2020-05-02 15:40] LABS: Troponin I < 0.012 ng/mL (0.01-0.034)
[2020-05-02 15:51] LABS: TSH w/ Reflex to FT4 1.25 uIU/mL (0.47-4.68)
[2020-05-02 17:06] VITALS: BP 118/57; PULSE 56; RESP 15; O2SAT 100
[2020-05-02 17:40] VITALS: BP 115/70; PULSE 55; O2SAT 100
[2020-05-02 18:02] LABS: Creatine Kinase 61 U/L (30-135)
[2020-05-02 18:03] LABS: D Dimer < 200 ng/mL (<230)
[2020-05-02 18:16] LABS: NT-proBNP (BNP-Adult 18+) 160 pg/mL (<125); Troponin I < 0.012 ng/mL (0.01-0.034)
[2020-05-02 18:34] LABS: Thyroid Stimulating Hormone 1.11 uIU/mL (0.47-4.68)
[2020-05-02 18:39] VITALS: BP 109/72; PULSE 70; RESP 18; O2SAT 100
--- NOTE | 2020-05-02 20:14 | ED_ITS ---
HPI - Chest Pain General Chief Complaint: Chest Pain Stated Complaint: pulse is super high,high blood pressure Time Seen by Provider: 05/02/20 17:05 Source: patient Mode of arrival: Ambulatory History of Present Illness HPI narrative: CC; chest pain with palpitations HPI: The patient is a 39-year-old female comes into the emergency department complaining that she has been having palpitations and racing of her heart for the last 2 weeks prior to admission. At time she has some chest discomfort. She has been trying to make an appointment with her doctor's office but they are afraid to see me in the office without sending me to the emergency department to be evaluated. She denies being dizzy lightheaded or passing out. She has had palpitations with chest discomfort and mild shortness of breath. She feels as though she can not catch her breath. When she was 17 years old after she delivered her 1st child she had a stroke. They told her never to get after that and she has not. Her chest discomfort is a vague chest tightness. She does not smoke cigarettes she does drink alcohol socially but does not use any marijuana. Related Data Home Medications Medication Instructions Recorded Confirmed thyroid (pork) [Nature-Throid] 48.75 mg PO QAM #0 05/27/17 01/07/20 DIM PO 07/30/19 01/07/20 dihydroergotamine NASAL PRN 07/30/19 01/07/20 ibuprofen 800 mg tablet 800 mg PO Q6H PRN 07/30/19 01/07/20 sumatriptan succinate 50 mg tablet 50 mg PO Q2-4H PRN 07/30/19 01/07/20 Previous Rx's Medication Instructions Recorded ondansetron 4 mg disintegrating 4 mg PO TID PRN 4 Days #20 tab 07/30/19 tablet rizatriptan 10 mg disintegrating See Rx Instructions PO .COMPLEX 07/30/19 tablet #10 tab verapamil 120 mg tablet,extended 120 mg PO DAILY #30 tab 07/30/19 release verapamil 40 mg tablet 40 mg PO TID #30 tab 07/30/19 naproxen sodium 550 mg tablet 550 mg PO TID #60 tab 08/06/19 lidocaine 1 patch TOP DAILY PRN #1 each 01/07/20 Allergies Allergy/AdvReac Type Severity Reaction Status Date / Time Pertussis Vaccines Allergy Unknown Verified 05/02/20 14:41 [PERTUSSIS VACCINES] phenytoin [From DILANTIN] Allergy Unknown Verified 05/02/20 14:41 acetaminophen [From Percocet] Allergy rash, Verified 05/02/20 14:41 itching divalproex sodium Allergy fever, rash Verified 05/02/20 14:41 [From Depakote] omeprazole [From Prilosec] Allergy fever, rash Verified 05/02/20 14:41 oxycodone [From Percocet] Allergy rash, Verified 05/02/20 14:41 itching PAPER TAPE Allergy Unknown Uncoded 05/02/20 14:41 Review of Systems Review of Systems Narrative: REVIEW OF SYSTEMS: CONSTITUTIONAL: She denies any fever chills or sweats. NEUROLOGICAL: She has had no significant headache numbness tingling paresthesias anesthesia is paresis or paralysis. EENT: She has had no sore throat or difficulty in swallowing no dysphagia. CARDIO-PULMONARY: She has had a minimal mild cough that has been nonproductive of any sputum associated with a chest discomfort that is an aching discomfort and shortness of breath with palpitations. She has never been told that she had a heart murmur or that she had mitral valve prolapse. GASTROINTESTINAL: She has had no significant abdominal pain nausea vomiting diarrhea melena hematochezia change in bowel habits. GENITAL URINARY: She denies any urinary symptoms. She denies being . MUSCULOSKELETAL/ RHEUMATOLOGICAL: She denies any significant back pain. DERMATOLOGICAL: She has had no rash bruising or bleeding abnormalities. Patient History Medical History History of stroke without residual deficits (05/27/17) Menorrhagia with regular cycle (Acute) Pelvic peritoneal endometriosis (Acute) Surgical History Status post laparoscopy (12/30/17) Social History Smoking Status: Never smoker Smoking Status: Never smoker alcohol intake frequency: holidays/special occasions only Substance Use Type: does not use Exam Narrative Exam Narrative: PHYSICAL EXAM: CONSTITUTIONAL: Awake, Alert, Oriented, Coherent, Cooperative in NAD. Does not appear toxic or ill. HEAD: AT/NC EENT: PERRL, FROM of eyes, no discharge, no nystagmus NOSE:No epistaxis or nasal drainage MOUTH:Oral mucosa is moist and pink, posterior pharynx is without erythema or exudate. NECK: Supple, no obvious JVD, Trachea is midline without stridor, no palpable LN. SPINE: Palpationof the cervical, Thoracic, Lumbar or Sacral spine reveals no gr oss deformity or tenderness. No CVA tenderness. THORAX: No deformity, retractions, chest wall tenderness. LUNGS: Clear, symmetrical breath sounds without respiratory distress. HEART: Normal heart tones, regular rhythm and rate without murmur. ABDOMEN: Soft, non-tender, without guarding, rebound, rigidity or palpable mass. EXTREMITIES: No edema, deformity, tenderness or cyanosis. SKIN: No rash, bruising, petechiae or purpura. NEURO: Awake, alert, oriented, conversive, cranial nerves II-XII are symmetrical , moves all 4 extremities and is ambulatory. MENTAL HEALTH: Does not appear anxious or depressed. Initial Vital Signs Initial Vital Signs: Vital Signs Pulse Rate 97 H 05/02/20 14:41 Respiratory Rate 18 05/02/20 14:41 Blood Pressure 132/87 05/02/20 14:41 Pulse Oximetry 100 05/02/20 14:41 Course Orders Ordered: ED Orders 05/02/20 14:43 XR chest 1V Stat MAG [Magnesium] Stat TSH w/ Reflex to FT4 Stat EKG-12 Lead Stat 05/02/20 14:58 Complete Blood Count AUTO DIFF Stat Comprehensive Metabolic Panel Stat Lipase Stat Partial Thromboplastin Time Stat Prothrombin Time INR Stat Troponin & CK Cardiac Panel Stat 05/02/20 17:30 D Dimer Stat NT-proBNP (BNP-Adult 18+) Stat Thyroid Stimulating Hormone Stat Troponin & CK Cardiac Panel Stat Vital Signs Vital signs: Vital Signs - 8 hr 05/02/20 14:41 05/02/20 17:06 05/02/20 17:40 Pulse Rate 97 H 56 L 55 L Respiratory Rate 18 15 Blood Pressure 132/87 Blood Pressure [Left Arm] 118/57 L 115/70 Pulse Oximetry 100 100 100 05/02/20 18:39 Pulse Rate 70 Respiratory Rate 18 Blood Pressure 109/72 Blood Pressure [Left Arm] Pulse Oximetry 100 MDM - Chest Pain Lab Data Result diagrams: 05/02/20 14:58 05/02/20 14:58 Labs: Lab Results 05/02/20 05/02/20 05/02/20 Range/Units 14:43 14:43 14:58 WBC 6.1 (4.5-11.0) X10^3/uL RBC 4.26 (4.0-5.2) X10^6/uL Hgb 13.2 (12.0-16.0) g/dL Hct 38.4 (36-46) % MCV 90.1 (80-100) fL MCH 31.0 (26-34) PG MCHC 34.4 (30-36) % RDW 12.9 (11.6-14.8) % Plt Count 258 (150-400) X10^3/uL Neut % (Auto) 69.7 (50-75) % Lymph % (Auto) 21.6 L (25-40) % Mercer % (Auto) 6.7 (3-14) % Eos % (Auto) 1.1 L (2-4) % Baso % (Auto) 0.9 (0-2) % Neut # (Auto) 4200 (0082-2362) /uL Lymph # (Auto) 1300 (2161-5695) /uL Mercer # (Auto) 400 (0-900) /uL Eos # (Auto) 100 (0-450) /uL Baso # (Auto) 100 (0-100) /uL PT (10.1-12.7) SECONDS INR (0.9-1.3) APTT (26.4-36.2) SECONDS D-Dimer (<230) ng/mL Sodium (137-145) mmol/L Potassium (3.4-5.1) mmol/L Chloride (98-107) mmol/L Carbon Dioxide (22-32) mmol/L BUN (7-17) mg/dL Creatinine (0.52-1.04) mg/dL Estimated GFR (>60) mL/min BUN/Creatinine Ratio (6-22) Glucose (70-100) mg/dL Calcium (8.4-10.2) mg/dL Magnesium 1.9 (1.6-2.3) mg/dL Total Bilirubin (0.2-1.3) mg/dL AST (14-36) IU/L ALT (<35) IU/L Alkaline Phosphatase (38-126) U/L Total Creatine Kinase (30-135) U/L CK-MB (CK-2) CK-MB (CK-2) Rel Index Troponin I (0.01-0.034) ng/mL NT-Pro-B Natriuret Pep (<125) pg/mL Total Protein (6.3-8.2) g/dL Albumin (3.5-5.0) g/dL Globulin (1.7-4.1) g/dL Albumin/Globulin Ratio (1.0-2.8) Lipase (23-300) U/L TSH 1.25 (0.47-4.68) uIU/mL 05/02/20 05/02/20 05/02/20 Range/Units 14:58 14:58 17:30 WBC (4.5-11.0) X10^3/uL RBC (4.0-5.2) X10^6/uL Hgb (12.0-16.0) g/dL Hct (36-46) % MCV (80-100) fL MCH (26-34) PG MCHC (30-36) % RDW (11.6-14.8) % Plt Count (150-400) X10^3/uL Neut % (Auto) (50-75) % Lymph % (Auto) (25-40) % Mercer % (Auto) (3-14) % Eos % (Auto) (2-4) % Baso % (Auto) (0-2) % Neut # (Auto) (9771-1474) /uL Lymph # (Auto) (7538-3772) /uL Mercer # (Auto) (0-900) /uL Eos # (Auto) (0-450) /uL Baso # (Auto) (0-100) /uL PT 11.1 (10.1-12.7) SECONDS INR 1.0 (0.9-1.3) APTT 31 (26.4-36.2) SECONDS D-Dimer < 200 (<230) ng/mL Sodium 138 (137-145) mmol/L Potassium 3.5 (3.4-5.1) mmol/L Chloride 106 (98-107) mmol/L Carbon Dioxide 26 (22-32) mmol/L BUN 11 (7-17) mg/dL Creatinine 0.77 (0.52-1.04) mg/dL Estimated GFR > 60.0 (>60) mL/min BUN/Creatinine Ratio 14.3 (6-22) Glucose 103 H (70-100) mg/dL Calcium 9.2 (8.4-10.2) mg/dL Magnesium (1.6-2.3) mg/dL Total Bilirubin 0.6 (0.2-1.3) mg/dL AST 26 (14-36) IU/L ALT 14 (<35) IU/L Alkaline Phosphatase 41 (38-126) U/L Total Creatine Kinase 61 (30-135) U/L CK-MB (CK-2) TNP CK-MB (CK-2) Rel Index TNP Troponin I < 0.012 (0.01-0.034) ng/mL NT-Pro-B Natriuret Pep (<125) pg/mL Total Protein 7.3 (6.3-8.2) g/dL Albumin 4.3 (3.5-5.0) g/dL Globulin 3.0 (1.7-4.1) g/dL Albumin/Globulin Ratio 1.4 (1.0-2.8) Lipase 120 (23-300) U/L TSH (0.47-4.68) uIU/mL 05/02/20 05/02/20 Range/Units 17:30 17:30 WBC (4.5-11.0) X10^3/uL RBC (4.0-5.2) X10^6/uL Hgb (12.0-16.0) g/dL Hct (36-46) % MCV (80-100) fL MCH (26-34) PG MCHC (30-36) % RDW (11.6-14.8) % Plt Count (150-400) X10^3/uL Neut % (Auto) (50-75) % Lymph % (Auto) (25-40) % Mercer % (Auto) (3-14) % Eos % (Auto) (2-4) % Baso % (Auto) (0-2) % Neut # (Auto) (6314-6098) /uL Lymph # (Auto) (0339-8110) /uL Mercer # (Auto) (0-900) /uL Eos # (Auto) (0-450) /uL Baso # (Auto) (0-100) /uL PT (10.1-12.7) SECONDS INR (0.9-1.3) APTT (26.4-36.2) SECONDS D-Dimer (<230) ng/mL Sodium (137-145) mmol/L Potassium (3.4-5.1) mmol/L Chloride (98-107) mmol/L Carbon Dioxide (22-32) mmol/L BUN (7-17) mg/dL Creatinine (0.52-1.04) mg/dL Estimated GFR (>60) mL/min BUN/Creatinine Ratio (6-22) Glucose (70-100) mg/dL Calcium (8.4-10.2) mg/dL Magnesium (1.6-2.3) mg/dL Total Bilirubin (0.2-1.3) mg/dL AST (14-36) IU/L ALT (<35) IU/L Alkaline Phosphatase (38-126) U/L Total Creatine Kinase 61 (30-135) U/L CK-MB (CK-2) TNP CK-MB (CK-2) Rel Index TNP Troponin I < 0.012 (0.01-0.034) ng/mL NT-Pro-B Natriuret Pep 160 H (<125) pg/mL Total Protein (6.3-8.2) g/dL Albumin (3.5-5.0) g/dL Globulin (1.7-4.1) g/dL Albumin/Globulin Ratio (1.0-2.8) Lipase (23-300) U/L TSH 1.11 (0.47-4.68) uIU/mL Discharge Plan Departure Patient Disposition: Home Clinical Impression: H/O: stroke, Chest discomfort, Palpitation, Shortness of breath Discharge Date/Time: 05/02/20 18:40 Instructions: DI for Arrhythmias, DI for Shortness of Breath, DI for Palpitations Activity Restrictions/Additional Instructions: 1. Follow-up with your primary care physician. You may need to have an echocardiogram and/or Holter monitor. 2. If you develop worsening chest pain shortness of breath you need to return to the emergency department. 3. If you develop discomfort take acetaminophen/Tylenol 500 mg every 4 hours or 3, 200 mg ibuprofen tablets every 6 hours. 4. If you suddenly developed shortness of breath worsening pain fever shortness of breath, chest pain, passing-out you need to return to the emergency department Prescriptions: No Action thyroid (pork) [Nature-Throid] 48.75 MG tablet 48.75 mg PO QAM Qty: 0 RF: 0 naproxen sodium 550 mg tablet 550 mg PO TID Qty: 60 RF: 0 lidocaine 5 % adhesive patch,medicated 1 patch TOP DAILY PRN (Reason: pain) Qty: 1 RF: 0 sumatriptan succinate 50 mg tablet 50 mg PO Q2-4H PRNRF: 0 ibuprofen 800 mg tablet 800 mg PO Q6H PRNRF: 0 dihydroergotamine NASAL PRNRF: 0 DIM PO RF: 0 ondansetron 4 mg tablet,disintegrating 4 mg PO TID PRN (Reason: nausea and vomiting) 4 Days Qty: 20 RF: 2 rizatriptan 10 mg tablet,disintegrating See Rx Instructions PO .COMPLEX Qty: 10 RF: 3 verapamil 40 mg tablet 40 mg PO TID Qty: 30 RF: 0 verapamil 120 mg tablet extended release 120 mg PO DAILY Qty: 30 RF: 5 Referrals: Kate Chou MD [Primary Care Provider] -
== END 2020-05-02 18:40 | disposition home or self-care (01) ==
PROVIDERS: Emergency Provider Emergency Medicine; Family Provider Specialist; PCP Specialist
DX: R07.9 Chest pain, unspecified (principal); R00.2 Palpitations; R06.02 Shortness of breath; Z86.73 Personal history of transient ischemic attack (TIA), and cerebral infarction without residual deficits
CPT/HCPCS: 36415; 71045; 80053; 82550; 83690; 83735; 83880; 84443; 84484; 85025; 85379; 85610; 85730; 93005; 99283; 99284

== ENCOUNTER → 2020-09-03 14:54 | Outpatient (CLI) | payer OTHER, SELFPAY ==
[2020-09-03 14:59] LABS: Bacteria Urine None Seen; RBC Urine None Seen (0-5/HPF); WBC Urine None Seen (0-5/HPF)
[2020-09-03 16:35] LABS: Appearance Urine UA CLEAR; Bilirubin Urine UA NEGATIVE (NEGATIVE); Color Urine UA YELLOW; Glucose Urine UA NEGATIVE (Negative); Ketones Urine UA NEGATIVE (NEGATIVE); Leukocyte Esterase Urine UA NEGATIVE (NEGATIVE); Nitrite Urine UA NEGATIVE (Negative); Occult Blood Urine UA NEGATIVE (Negative); Protein Urine UA NEGATIVE (Negative); Specific Gravity Urine UA <=1.005 (1.000-1.035); Urobilinogen Urine UA 0.2 E.U./dL (0.2)
[2020-09-03 16:50] LABS: Culture Indicated Urine Cult Not Indicated
== END ==
PROVIDERS: Family Provider Specialist; PCP Family Medicine; Referring Provider Family Medicine; Visit Provider Family Medicine
DX: R30.0 Dysuria (principal)
CPT/HCPCS: 81001

== ENCOUNTER → 2021-04-20 13:34 | Outpatient (CLI) | payer SELFPAY ==
--- NOTE | 2021-04-20 13:37 | DI.RAD.S_ITS ---
PROCEDURE: XR HAND RT MIN 3V, 04/20/2021, 13:43 XR HAND LT MIN 3V, 04/20/2021, 13:43 INDICATIONS: Bilateral hand pain TECHNIQUE: Three views of both hands were acquired. COMPARISON: None. FINDINGS: Bones: No fractures or dislocations. Carpal bones are normally aligned. No suspicious bony lesions. No erosions or evidence of inflammatory arthropathy. Soft tissues: No suspicious soft tissue calcifications. IMPRESSION: Normal bilateral hands. No evidence of inflammatory arthropathy. Dictated by: Dino Peck M.D. on 04/20/2021 at 15:00 Approved by: Dino Peck M.D. on 04/20/2021 at 15:02
[2021-04-20 13:56] LABS: Add Manual Diff / Slide Review NO; Basophils Absolute Auto 100 /uL (0-100); Basophils Percent Auto 0.9 % (0-2); Eosinophils Absolute Auto 100 /uL (0-450); Eosinophils Percent Auto 1.7 % (2-4); Hematocrit 38.3 % (36-46); Lymphocytes Absolute Auto 1400 /uL (1100-4500); Lymphocytes Percent Auto 24.5 % (25-40); Mean Corpuscular Hemoglobin 30.6 PG (26-34); Mean Corpuscular Volume 90.1 fL (80-100); Monocytes Absolute Auto 500 /uL (0-900); Monocytes Percent Auto 7.9 % (3-14); Neutrophils Absolute Auto 3800 /uL (1500-7000); Platelet Count 273 X10^3/uL (150-400); Red Blood Cell Count 4.24 X10^6/uL (4.0-5.2); White Blood Cell Count 5.8 X10^3/uL (4.5-11.0)
[2021-04-20 14:21] LABS: Alanine Aminotransferase 15 IU/L (<35); Albumin 4.2 g/dL (3.5-5.0); Albumin Globulin Ratio 1.4 (1.0-2.8); Alkaline Phosphatase 40 U/L (38-126); Aspartate Aminotransferase 25 IU/L (14-36); BUN Creatinine Ratio 15.5 (6-22); Bilirubin Total 0.5 mg/dL (0.2-1.3); Blood Urea Nitrogen 13 mg/dL (7-17); Calcium 9.1 mg/dL (8.4-10.2); Carbon Dioxide 26 mmol/L (22-32); Chloride 105 mmol/L (98-107); Estimated Glomerular Filt Rate > 60.0 mL/min (>60); Glucose 98 mg/dL (70-100); HEMOLYSIS < 15 (0-50); Magnesium 1.8 mg/dL (1.6-2.3); Potassium 4.5 mmol/L (3.4-5.1); Sodium 137 mmol/L (137-145); Total Protein 7.2 g/dL (6.3-8.2)
[2021-04-20 14:24] LABS: Rheumatoid Factor < 8.6 IU/mL (<12.0)
[2021-04-20 14:41] LABS: Erythrocyte Sedimentation Rate 5 MM/HR (0-20)
[2021-04-20 14:51] LABS: TSH w/ Reflex to FT4 0.99 uIU/mL (0.47-4.68)
== END ==
PROVIDERS: Family Provider Specialist; PCP Family Medicine; Referring Provider Family Medicine; Visit Provider Family Medicine
DX: M79.641 Pain in right hand (principal); M79.642 Pain in left hand
CPT/HCPCS: 36415; 73130; 80053; 83735; 84443; 85025; 85651; 86430

== ENCOUNTER → 2022-04-14 11:59 | Outpatient (CLI) | payer OTHER, SELFPAY ==
--- NOTE | 2022-04-14 12:01 | DI.RAD.S_ITS ---
PROCEDURE: XR CHEST 1V INDICATIONS: chronic cough TECHNIQUE: One view of the chest was acquired. COMPARISON: [facility], CR, XR CHEST 1V, 05/02/2020, 15:35. FINDINGS: Surgical changes and devices: None. Lungs and pleura: Lungs are clear. No pleural effusions or pneumothorax. Mediastinum: Mediastinal contours appear normal. Heart size is normal. Bones and chest wall: No suspicious bony lesions. Overlying soft tissues appear unremarkable. IMPRESSION: No acute cardiopulmonary pathology. Dictated by: Tod Hurtado M.D. on 04/14/2022 at 12:22 Approved by: Tod Hurtado M.D. on 04/14/2022 at 12:25
== END ==
PROVIDERS: Family Provider Specialist; PCP Family Medicine; Referring Provider Physician Assistant; Visit Provider Physician Assistant
DX: R06.02 Shortness of breath (principal); R05.9 Cough, unspecified
CPT/HCPCS: 71045

== ENCOUNTER → 2023-07-13 08:35 | Outpatient (CLI) | payer OTHER, SELFPAY ==
[2023-07-13 09:25] LABS: Alanine Aminotransferase 21 IU/L (<35); Albumin 4.2 g/dL (3.5-5.0); Albumin Globulin Ratio 1.3 (1.0-2.8); Alkaline Phosphatase 48 U/L (38-126); Aspartate Aminotransferase 26 IU/L (14-36); BUN Creatinine Ratio 12.2 (6-22); Bilirubin Total 0.6 mg/dL (0.2-1.3); Blood Urea Nitrogen 10 mg/dL (7-17); Calcium 9.3 mg/dL (8.4-10.2); Carbon Dioxide 28 mmol/L (22-32); Chloride 105 mmol/L (98-107); Estimated Glomerular Filt Rate > 60 mL/min (>60); Globulin 3.3 g/dL (1.7-4.1); Glucose 98 mg/dL (70-100); HEMOLYSIS < 15 (0-50); Potassium 3.8 mmol/L (3.4-5.1); Sodium 139 mmol/L (137-145); Total Protein 7.5 g/dL (6.3-8.2)
[2023-07-13 10:11] LABS: TSH w/ Reflex to FT4 1.66 uIU/mL (0.47-4.68)
== END ==
PROVIDERS: Family Provider Specialist; PCP Family Medicine; Referring Provider Physician Assistant; Visit Provider Physician Assistant
DX: E03.9 Hypothyroidism, unspecified (principal)
CPT/HCPCS: 36415; 80053; 84443

== ENCOUNTER → 2023-10-22 08:28 | Outpatient (CLI) | payer OTHER, SELFPAY ==
[2023-10-22 09:09] LABS: Add Manual Diff / Slide Review NO; Basophils Absolute Auto 100 /uL (0-100); Basophils Percent Auto 0.9 % (0-2); Eosinophils Absolute Auto 200 /uL (0-450); Eosinophils Percent Auto 2.6 % (2-4); Hemoglobin 13.5 g/dL (12.0-16.0); Lymphocytes Absolute Auto 2000 /uL (1100-4500); Lymphocytes Percent Auto 32.1 % (25-40); Mean Corpuscular HGB Conc 33.8 % (30-36); Mean Corpuscular Hemoglobin 30.3 PG (26-34); Mean Corpuscular Volume 89.7 fL (80-100); Monocytes Absolute Auto 500 /uL (0-900); Monocytes Percent Auto 8.8 % (3-14); Neutrophils Absolute Auto 3400 /uL (1500-7000); Neutrophils Percent Auto 55.6 % (50-75); Platelet Count 267 X10^3/uL (150-400); Red Blood Cell Count 4.46 X10^6/uL (4.0-5.2); Red Cell Distribution Width 13.2 % (11.6-14.8); White Blood Cell Count 6.2 X10^3/uL (4.5-11.0)
[2023-10-22 09:32] LABS: Alanine Aminotransferase 22 IU/L (<35); Albumin 4.1 g/dL (3.5-5.0); Albumin Globulin Ratio 1.4 (1.0-2.8); Alkaline Phosphatase 40 U/L (38-126); Aspartate Aminotransferase 28 IU/L (14-36); BUN Creatinine Ratio 15.6 (6-22); Bilirubin Total 0.9 mg/dL (0.2-1.3); Blood Urea Nitrogen 12 mg/dL (7-17); Calcium 9.4 mg/dL (8.4-10.2); Carbon Dioxide 26 mmol/L (22-32); Chloride 104 mmol/L (98-107); Cholesterol 212 mg/dL (140-199); Estimated Glomerular Filt Rate > 60 mL/min (>60); Glucose 98 mg/dL (70-100); HDL Cholesterol 60 mg/dL (40-60); HEMOLYSIS < 15 (0-50); LDL Cholesterol Calculated 135 mg/dL (<100); Potassium 4.3 mmol/L (3.4-5.1); Sodium 137 mmol/L (137-145); Total Protein 7.1 g/dL (6.3-8.2); Triglycerides 87 mg/dL (35-150)
[2023-10-22 10:02] LABS: TSH w/ Reflex to FT4 3.03 uIU/mL (0.47-4.68)
== END ==
PROVIDERS: Family Provider Specialist; PCP Family Medicine; Referring Provider Physician Assistant; Visit Provider Physician Assistant
DX: I49.9 Cardiac arrhythmia, unspecified (principal); E03.9 Hypothyroidism, unspecified
CPT/HCPCS: 36415; 80053; 80061; 84443; 85025

== ENCOUNTER → 2023-11-02 09:55 | Outpatient (CLI) | payer OTHER, SELFPAY | PROVIDERS: Family Provider Specialist; PCP Family Medicine; Referring Provider Physician Assistant; Visit Provider Physician Assistant | DX: R00.2 Palpitations (principal) | CPT/HCPCS: 93246 ==

== ENCOUNTER → 2024-02-07 07:41 | Outpatient (CLI) | payer OTHER, SELFPAY ==
--- NOTE | 2024-02-07 07:43 | DI.NM.S_ITS ---
PROCEDURE: NM EXERCISE TREADMILL NON NUC COMPARISON: None. INDICATIONS: Chest pain on exertion FINDINGS: The patient exercised for 7 minutes and 28 seconds reaching 97% of maximum predicted heart rate. Appropriate BP response to exercise. 10.1METs, CRISTINA +33%. Patient had chest pain that started shortly after initiation of exercise and it worsened with continued exercise and resolved 5 minutes into recovery. No diagnostic ST changes and no ectopy during exercise or recovery. IMPRESSION: Low risk, normal treadmill ECG only stress test from inducible ischemia standpoint. Mildly reduced exercise tolerance (10.1 METs, CRISTINA +33%). Non-diagnostic chest pain that started shortly after initiation of exercise and it worsened with continued exercise and resolved 5 minutes into recovery. Correlate clinically. Dictated by: Kamini Mo MD on 02/07/2024 at 13:40 Approved by: Kamini Mo MD on 02/07/2024 at 13:42
== END ==
LOC: RAD 07:42
PROVIDERS: Family Provider Specialist; PCP Family Medicine; Referring Provider Physician Assistant; Visit Provider Physician Assistant
DX: R07.9 Chest pain, unspecified (principal)
CPT/HCPCS: 93017

== ENCOUNTER → 2024-04-12 08:08 | Outpatient (CLI) | payer OTHER, SELFPAY ==
--- NOTE | 2024-04-12 08:09 | DI.ECHO.S_ITS ---
[facility] : : [id number] : : [place] : : [id number] : : Phone: [phone] Echocardiogram Report + + :Name: SEB PAIGE Study Date: 04/12/2024 Height: 64 in : :Hospital ReadingLocation: Weight: 223 lb : : Gender: Female BSA: 2.0 m2 : :: 1980 Age: 43 yrs BP: 114/79 mmHg: :Reason For Study: EXERTIONAL CHEST PAIN, SVT : :Ordering Physician: MANAV, : :BONY Performed By: Nell Knutson : :Referring: ZOE HURTADO C : + + Interpretation Summary 1. The left ventricular contractility is normal. Estimated ejection fraction is greater than 60% with no segmental wall motion abnormalities. No left ventricular hypertrophy is identified. Normal diastolic function present. 2. The right ventricular contractility is normal. 3. There is mild enlargement of the left atrium and right ventricle. The right atrium and left ventricle are of normal size. 4. Mild tricuspid regurgitation noted with estimated pulmonary systolic artery pressure of 27 mmHg. 5. No intracardiac shunts noted on agitated saline contrast study. However there was delayed agitated contrast noted in the left atrium and left ventricle suggesting the presence of an intrapulmonary shunt. 6. No obvious intracardiac masses nor thrombi appreciated. 7. No hemodynamically significant pericardial effusion identified. Conclusion: Normal biventricular function with mild cardiomegaly consisting of the right ventricle and left atrium. Mild tricuspid regurgitation present. Intrapulmonary shunt noted. Procedure: A two-dimensional transthoracic echocardiogram with color flow and Doppler was performed. The study quality was technically adequate. There is no prior echocardiogram noted for this patient. A saline contrast injection was performed to assess for cardiac shunting. The injection was performed through an intravenous line in the right arm. The patient was in sinus bradycardia with heart rates between 51-61 bpm during the exam. Left Ventricle: The left ventricle is normal in size and wall thickness. The ejection fraction is estimated to be 60-65%. Right Ventricle: The right ventricle is mildly dilated. The right ventricular systolic function is normal. Atria: The left atrium is mildly dilated. Right atrial size is normal. Mitral Valve: The mitral valve is normal in structure and function. There is trace mitral regurgitation. Aortic Valve: The aortic valve is trileaflet. The aortic valve opens well. There is no aortic valve stenosis. No aortic regurgitation is present. Tricuspid Valve: The tricuspid valve is normal in structure and function. There is mild tricuspid regurgitation. The right ventricular systolic pressure is estimated to be at least 27 mmHg based on an estimated right atrial pressure of 3 mm Hg. Pulmonic Valve: The pulmonic valve leaflets are thin and pliable; valve motion is normal. There is trace pulmonic regurgitation. Great Vessels: The aortic root is normal size. The dimensions of the ascending aorta are normal. The IVC is of normal diameter and collapses greater than 50% with a sniff. This suggests a low right atrial pressure of 3 mm Hg. Pericardium/ Pleura There is no pericardial effusion. There is no pleural effusion. MMode/2D Measurements & Calculations LVIDd: 5.3 cm LVOT diam: 2.0 cm LVIDs: 3.2 cm Ao root diam: 3.0 cm FS: 39.6 % asc Aorta Diam: 3.7 cm EPSS: 0.52 cm Ao Arch Diam (Prox Trans): 3.1 cm IVSd: 0.70 cm LVPWd: 0.70 cm LV roland. diameter/BSA (cm/m^2): 2.6 LV sys. diameter/BSA (cm/m^2): 1.6 LA A2 area: 22.3 cm2 RA long axis: 5.0 cm LA A4 area: 22.5 cm2 RA area: 17.8 cm2 LA length (vol): 5.9 cm RA vol: 53.7 ml LA vol: 72.6 ml RA : 26.2 ml/m2 LA vol index: 35.4 ml/m2 IVC diam: 1.4 cm RVD1 (basal): 4.4 cm RVD2 (mid): 3.2 cm TAPSE: 2.9 cm Doppler Measurements & Calculations Ao V2 max: 153.7 cm/sec LVOT Max Abel: 111.0 cm/sec Ao V2 mean: 103.2 cm/sec LV V1 max P.9 mmHg Ao max P.5 mmHg LV V1 VTI: 23.4 cm Ao mean P.8 mmHg RYDER(I,D): 2.3 cm2 Ao V2 VTI: 32.2 cm RYDER(V,D): 2.3 cm2 sev ratio: 0.73 RYDER indexed to BSA (cm^2/m^2): 1.1 MV E max abel: 58.6 cm/sec TR max abel: 245.7 cm/sec MV A max abel: 39.7 cm/sec TR max P.1 mmHg MV E/A: 1.5 PA V2 max: 101.7 cm/sec Med Peak E' Abel: 9.0 cm/sec PA V2 mean: 64.1 cm/sec E/E' med: 6.5 PA mean P.0 mmHg Lat Peak E' Abel: 13.8 cm/sec PA pr(Accel): 15.6 mmHg E/E' lat: 4.3 E/e' average: 5.4 MV dec time: 0.30 sec SV(LVOT): 75.5 ml Reading Physician:
== END ==
LOC: ECHO 08:09
PROVIDERS: Family Provider Specialist; PCP Family Medicine; Referring Provider Family Medicine; Visit Provider Family Medicine
DX: I07.1 Rheumatic tricuspid insufficiency (principal); I47.10 Supraventricular tachycardia, unspecified; R07.9 Chest pain, unspecified; E03.9 Hypothyroidism, unspecified
CPT/HCPCS: 93306

== ENCOUNTER → 2024-07-24 15:02 | Outpatient (CLI) | payer BC, SELFPAY ==
--- NOTE | 2024-07-24 15:04 | DI.RAD.S_ITS ---
PROCEDURE: XR FOOT LT MIN 3V INDICATIONS: stubbed toe/lateral foot 3 days ago TECHNIQUE: 3 views of the foot were acquired. COMPARISON: None. FINDINGS: Bones: No acute displaced fracture or dislocation. Soft tissues: No suspicious calcifications. IMPRESSION: No acute radiographic abnormality. If there is high concern for occult injury, consider repeat radiography or cross-sectional imaging. Dictated by: Geo Hawkins M.D. on 07/24/2024 at 17:47 Approved by: Geo Hawkins M.D. on 07/24/2024 at 17:48
== END ==
PROVIDERS: Family Provider Specialist; PCP Family Medicine; Referring Provider Physician Assistant; Visit Provider Physician Assistant
DX: S99.929A Unspecified injury of unspecified foot, initial encounter (principal)
CPT/HCPCS: 73630

== ENCOUNTER → 2024-12-14 14:58 | Outpatient (CLI) | payer BC, SELFPAY ==
[2024-12-14 15:45] LABS: Influenza A - CEPHEID Flu A NEGATIVE (NEGATIVE); Influenza B - CEPHEID Flu B POSITIVE (NEGATIVE); Respiratory Syncytial Virus Negative (Negative)
[2024-12-14 15:58] LABS: COVID-19 CEPHEID 4-PLEX PCR Negative (Negative)
== END ==
PROVIDERS: Family Provider Specialist; PCP Family Medicine; Visit Provider Family Medicine
DX: R05.1 Acute cough (principal)
CPT/HCPCS: 0241U